=== PATIENT | female | born 1960 | race Caucasian/White ===

== ENCOUNTER → 2016-05-26 | Outpatient (CLI) | payer MEDICAID ==
[~2016-05-26] MED LIST: GADOBUTROL 10 ML VIAL IVP ONE
--- NOTE | 2016-05-27 16:43 | MR ---
MRI of the Right Shoulder, Without and With Contrast May 26, 2016 History: History of metastatic breast cancer, with persistent pain right shoulder. Technique: Precontrast axial, oblique coronal, oblique sagittal MR sequences of the right shoulder ar e obtained. After intravenous administration of 7 mL Gadavist, postcontrast-enhanced imaging is obta ined in three planes. Comparison Studies: Prior [facility] PET examinations. Findings: There are features of avascular necrosis involving the medial aspect of the right humeral h ead. In addition to diminished enhancement and abnormal marrow signal characteristics, there is sligh t collapse of the superior medial aspect of the right humeral head. Extensive bone marrow edema invol ves the right humeral head and extends into the humeral neck and proximal diaphysis. This appears to be secondary to the avascular injury and partial collapse, as there is no evidence of abnormal PET/CT uptake in the proximal right humeral diaphysis on most recent PET/CT examination. Additionally, ther e are no features of cortical disruption or extraosseous soft tissue mass. Marked attenuation high-grade partial tear of distal supraspinatus at the greater tuberosity anterior ly. The more posterior fibers of supraspinatus are intact. Infraspinatus is intact. Subscapularis and teres minor are intact. Long head biceps tendon is normally positioned and intact. No displaced surendra oid labral tear identified, with mild maceration and fraying of the posterior inferior labrum at the 7 o'clock position. Articular cartilage of the glenohumeral joint is intact. Impressions 1. 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 This appears to represent a biomechanical abnormality rather than malignancy, giv en lack of PET/CT uptake in the proximal right humeral diaphysis on most recent PET/CT examination. A dditionally, the lack of cortical breakthrough or extraosseous soft tissue mass favors biomechanical over malignant etiology. 2. Distal supraspinatus tendinosis and partial tear anteriorly distally at the greater tuberosity. 3. Degenerative maceration posterior inferior glenoid labrum, without detached tear.
== END ==
LOC: FIMAGING 14:24
PROVIDERS: ATTEND Internal Medicine Hematology & Oncology
DX: M75.81 Other shoulder lesions, right shoulder (principal); S46.911A Strain of unspecified muscle, fascia and tendon at shoulder and upper arm level, right arm, initial encounter; S43.431A Superior glenoid labrum lesion of right shoulder, initial encounter; C50.111 Malignant neoplasm of central portion of right female breast
CPT/HCPCS: A9585

== ENCOUNTER → 2017-10-26 | Outpatient (CLI) | payer OTHER | LOC: BHFA 14:00 | PROVIDERS: ATTEND Internal Medicine Interventional Cardiology | DX: Z51.11 Encounter for antineoplastic chemotherapy (principal) ==

== ENCOUNTER → 2018-10-03 | Outpatient (CLI) | payer OTHER | LOC: BHFA 14:45 | PROVIDERS: ATTEND Internal Medicine Cardiovascular Disease | DX: R06.02 Shortness of breath (principal); Z51.11 Encounter for antineoplastic chemotherapy ==